=== PATIENT | male | born 1950 | race Caucasian/White ===

== ENCOUNTER 2016-11-01 07:50 | Emergency (ER) | payer MEDICARE, OTHER ==
[~2016-11-01] VITALS: Ht 185.4 cm; Wt 103.0 kg
[2016-11-01 07:52] VITALS: BP 173/92; PULSE 68; RESP 15; TEMP 97.6; O2SAT 96
[2016-11-01 08:05] VITALS: BP 160/84; PULSE 71; TEMP 97.8; O2SAT 98
--- NOTE | 2016-11-01 08:18 | PD ---
HPI Chief Complaint: Complaint Time Seen by Provider: 08:15 Travel History International Travel<30 days: No Contact w/Intl Traveler<30days: No Traveled to known affect area: No History of Present Illness HPI 65-year-old male with history of kidney stones, recent UTIs, has been on antibiotics 3 weeks ago and then one week ago, presents to the ER today because he states that over the last 2 days he has had urinary urgency, frequency, and dysuria as well as hematuria. He denies any fevers, vomiting, or any other issues. Modifying Factors: None Associated Signs & Symptoms: Urinary symptoms, urinary frequency Risk Factors: Recent UTIs PFSH Past Medical History Cardiovascular Problems: Yes Social History Tobacco Use: No Allergies-Medications (Allergen,Severity, Reaction): Coded Allergies: No Known Allergies (Unverified , 11/01/16) Reported Meds & Prescriptions Reported Meds & Active Scripts Active Reported Sotalol (AF) (Sotalol (Afib/Afl)) 120 Mg Tab 120 Mg PO HS Sotalol (AF) (Sotalol (Afib/Afl)) 120 Mg Tab 180 Mg PO DAILY NEB Simvastatin 40 Mg Tab 40 Mg PO HS Lisinopril 20 Mg Tab 20 Mg PO DAILY Aspir-Low (Aspirin) 81 Mg Tabdr DAILY Review of Systems Except as stated in HPI: all other systems reviewed are Neg Physical Exam Narrative GENERAL: Elderly white male patient who is well-developed, awake, alert, oriented 3. Not in acute distress. SKIN: Warm and dry. HEAD: Atraumatic. Normocephalic. EYES: Pupils equal and round. No scleral icterus. No injection or drainage. ENT: No nasal bleeding or discharge. Mucous membranes pink and moist. NECK: Trachea midline. No JVD. CARDIOVASCULAR: Regular rate and rhythm. No murmur appreciated. RESPIRATORY: No accessory muscle use. Clear to auscultation. Breath sounds equal bilaterally. GASTROINTESTINAL: Abdomen soft, mild suprapubic tenderness without guarding or rebound, nondistended. Hepatic and splenic margins not palpable. MUSCULOSKELETAL: No obvious deformities. No clubbing. No cyanosis. No edema. NEUROLOGICAL: Awake and alert. No obvious cranial nerve deficits. Motor grossly within normal limits. Normal speech. PSYCHIATRIC: Appropriate mood and affect; insight and judgment normal. Data Data Last Documented VS Vital Signs Date Time Temp Pulse Resp B/P Pulse Ox O2 Delivery O2 Flow Rate FiO2 3/16/17 08:05 97.8 71 160/84 98 11/01/16 07:52 15 Orders Urinalysis - C+S If Indicated (11/01/16 08:15) Urinary Catheter Insert/Apply (11/01/16 08:15) Urine Culture (11/01/16 08:30) Labs Laboratory Tests Test 11/01/16 08:30 Urine Color YELLOW Urine Turbidity CLOUDY Urine pH 5.5 Urine Specific [place] 1.021 Urine Protein 100 mg/dL Urine Glucose (UA) NEG mg/dL Urine Ketones NEG mg/dL Urine Occult Blood LARGE Urine Nitrite NEG Urine Bilirubin NEG Urine Urobilinogen LESS THAN 2.0 MG/DL Urine Leukocyte Esterase LARGE Urine RBC /hpf Urine WBC /hpf Urine WBC Clumps MANY Urine Bacteria MOD /hpf Urine Mucus FEW /lpf Microscopic Urinalysis Comment CULTURE INDICATED MDM Medical Decision Making Medical Screen Exam Complete: Yes Emergency Medical Condition: Yes Medical Record Reviewed: Yes Interpretation(s) Laboratory Tests Test 11/01/16 08:30 Urine Turbidity CLOUDY (CLEAR) Urine Protein 100 mg/dL (NEG-TRACE) Urine Occult Blood LARGE (NEG) Urine Leukocyte Esterase LARGE (NEG) Urine WBC Clumps MANY (NONE) Urine Bacteria MOD /hpf (NONE) Urine Mucus FEW /lpf (OCC) Differential Diagnosis Urinary symptomsUTI versus BPH/urinary outflow obstruction Narrative Course Moore catheter was initially placed for possible urinary outflow obstruction but only drained 100 cc of urine and it was removed. His UA shows significant UTI. At this point, my plan would be to have him by mouth antibiotics for treatment and have him follow-up with his urologist once he gets back to [facility]. Return for any worsening in discomfort, pain, fevers, and as needed. The plan has been discussed with him and he states understanding. Diagnosis Primary Impression: UTI (urinary tract infection) Med/Other Pt SpecificInfo: Prescription(s) given Scripts Phenazopyridine (Pyridium)100 Mg Kok357 Mg PO Q8H PRN (DYSURIA) #12 TAB Ref 0 Prov:Cleveland Rubin MD 11/01/16 Nitrofurantoin Monohydrate Macrocrystals (Macrobid)100 Mg Jrp199 Mg PO BID 7 Days Ref 0 Prov:Cleveland Rubin MD 11/01/16 Disposition: 01 DISCHARGE HOME Condition: Stable Cleveland Rubin MD Nov 01, 2016 08:18
[2016-11-01] MEDS ORDERED: ASPI81TA19 (08:30)
[2016-11-01] MEDS ORDERED: SOTA80TA6 PO (08:38)
[2016-11-01] MEDS ORDERED: SIMV40TA PO (08:38)
[2016-11-01] MEDS ORDERED: LISI-515 PO (08:38)
[2016-11-01] MEDS ORDERED: [UNRECOGNIZED DRUG - CODE] PO ×3 (08:38)
[2016-11-01 09:07] LABS: BACTERIA, URINE MOD /hpf; BLOOD, URINE LARGE (NEG); COMMENT (UR) CULTURE INDICATED; CULTURE IF INDICATED CULTURE INDICATED; GLUCOSE,URINE NEG (NEG); KETONE, URINE NEG (NEG); MUCUS URINE FEW /lpf (OCC); NITRITE,URINE NEG (NEG); PH, URINE 5.5 (5.0-8.5); URINE COLOR YELLOW (YELLW/STRAW)
[2016-11-01] MEDS ORDERED: PHEN0.4T PO (09:24)
[2016-11-01] MEDS ORDERED: MACR100C2 PO (09:24)
== END 2016-11-01 09:46 | disposition home or self-care (01) ==
LOC: NEPC 07:50
DX: N39.0 Urinary tract infection, site not specified (principal); B96.20 Unspecified Escherichia coli [E. coli] as the cause of diseases classified elsewhere; Z87.442 Personal history of urinary calculi
CPT/HCPCS: 51702; 81001; 87077; 87086; 87186